=== PATIENT | female | born 1970 | race Caucasian/White ===

== ENCOUNTER → 2018-01-23 16:49 | Outpatient (CLI) | payer MEDICAID, SELFPAY ==
--- NOTE | 2018-01-23 16:54 | MM_ITS ---
MM Dig screening mamm BI w/CAD ORDERING PHYSICIAN : Eros Meade MD PATIENT AGE: 47 years GENDER: Female COMPARISON: Baseline mammogram. No previous INDICATION: ITS.REASON: ROUTINE SCREENING TECHNIQUE: Standard CC and MLO images were obtained. R2 CAD reviewed. FINDINGS: No dominant mass nor suspicious calcifications minimal residual fibroglandular elements with lower density breast moderate fatty replacement.Bilateral follow-up in one year the adequate RIGHT BREAST:No significant appearing findings. One year recommended. LEFT BREAST:. No significant appearing findings. Minimal Fibroglandular density superior left breast appears satisfactory. IMPRESSION: ... . Baseline mammogram with no areas of significant concern. Routine annual follow-up suggested. BI-RADS Category: 1 Negative RECOMMENDED FOLLOW-UP: 1YR 1 YEAR FOLLOW-UP (A letter has been sent to the patient regarding results of the study.)
== END ==
PROVIDERS: PCP Family Medicine; Visit Provider Family Medicine
DX: Z12.31 Encounter for screening mammogram for malignant neoplasm of breast (principal)
CPT/HCPCS: 77067

== ENCOUNTER → 2020-04-28 13:52 | Outpatient (CLI) | payer OTHER, SELFPAY ==
--- NOTE | 2020-04-28 13:56 | US_ITS ---
PROCEDURE: US KIDNEY CLINICAL INDICATION: RENAL INSUFFICIENCY COMPARISON: No exams were available for comparison FINDINGS: The right kidney is [id number]. No hydronephrosis, cortical thinning, or renal mass or perinephric fluid collection is evident. The left kidney is [id number]. No hydronephrosis, cortical thinning, or renal mass or perinephric fluid collection is evident. IMPRESSION: Unremarkable bilateral renal ultrasound Dictated by: William Call MD 04/28/2020 16:32 William Call MD in [place] 04/28/2020 16:32
== END ==
PROVIDERS: PCP Family Medicine; Visit Provider Family Medicine
DX: N28.9 Disorder of kidney and ureter, unspecified (principal)
CPT/HCPCS: 76770

== ENCOUNTER → 2020-06-03 12:51 | Outpatient (CLI) | payer OTHER, SELFPAY ==
--- NOTE | 2020-06-03 12:59 | XR_ITS ---
PROCEDURE: XR MULTIPLE SPINE 6+V CLINICAL INDICATION: CERVICAL AND THORACIC PAIN COMPARISON: No exams were available for comparison FINDINGS: Cervical spine: Five views. Normal alignment. No acute fracture or dislocation. No significant degenerative change. No lytic or blastic change. No foraminal narrowing Thoracic spine: Three views. Normal alignment. No acute fracture or dislocation. Mild kyphosis midthoracic spine with minimal wedge contour of T7, T8, and T9 which may be chronic. No lytic or blastic change. IMPRESSION: As above, minimal degenerative changes midthoracic spine otherwise negative Dictated by: William Call MD 06/03/2020 15:40 William Call MD in [place] 06/03/2020 15:40
== END ==
PROVIDERS: PCP Family Medicine; Visit Provider Family Medicine
DX: M54.2 Cervicalgia (principal); M54.6 Pain in thoracic spine
CPT/HCPCS: 72084

== ENCOUNTER → 2020-06-17 09:56 | Outpatient (CLI) | payer OTHER, SELFPAY ==
--- NOTE | 2020-06-17 10:01 | XR_ITS ---
PROCEDURE: XR DEXA AXIAL SKELETON CLINICAL HISTORY: OSTEOPENIA The patient currently is on vitamin-D. There has been fracture as an adult COMPARISON: No exams were available for comparison FINDINGS: The right hip BMD is 0.889 g per sq cm with a T-score of -0.4. The T-score right femoral neck is -1.4 The left hip BMD is 0.839 g per sq cm with a T-score of -0.8. The T-score left femoral neck is -1.4 The lumbar spine BMD is 0.993 g per sq cm with a T-score of -0.5. IMPRESSION: Normal values for the lumbar spine, mild osteopenia for both hips. The 10 year fracture risk major osteoporotic fracture is 8.6 percent and 1.2 percent for hip fracture Based on these results a follow-up exam is recommended in 2 year. Dictated by: Dr. Rio Romano MD 06/17/2020 11:21 Dr. Rio Romano MD in [place] 06/17/2020 11:21
== END ==
PROVIDERS: PCP Family Medicine; Visit Provider Family Medicine
DX: M85.859 Other specified disorders of bone density and structure, unspecified thigh (principal)
CPT/HCPCS: 77080

== ENCOUNTER → 2020-11-18 16:29 | Outpatient (CLI) | payer OTHER, SELFPAY ==
--- NOTE | 2020-11-18 16:39 | XR_ITS ---
PROCEDURE: XR CHEST 2V CLINICAL HISTORY: BILATERAL LOWER EXTREMITY EDEMA COMPARISON: CR XR MULTIPLE SPINE 6+V from 06/03/2020 FINDINGS: There is mild cardiomegaly without failure. The lungs are clear without infiltrates, suspicious nodules, or pleural effusions. New mild wedge compression changes of T7. Is difficult to determine if this has progressed. Repeat T-spine films may confirm. IMPRESSION: No acute findings. Questionable slight increased compression changes of T7 Dictated by: William Call MD 11/18/2020 17:14 William Call MD in [place] 11/18/2020 17:14
[2020-11-18 17:37] LABS: Hemoglobin A1C 5.4 % (4.0-6.0)
[2020-11-18 18:00] LABS: Chloride 102 mmol/L (98-107)
[2020-11-18 18:01] LABS: Potassium 4.2 mmoL/L (3.5-5.1); Sodium 137 mmol/L (136-145)
[2020-11-18 18:03] LABS: Alanine Aminotransferase 18 U/L (12-78); Aspartate Amino Transferase 26 U/L (14-36); Blood Urea Nitrogen 17 mg/dl (7-17); Estimated Glomerular Filt Rate 47 ml/min (>60); GFR (African American) 57 ML/MIN (>60)
[2020-11-18 18:04] LABS: Albumin/Globulin Ratio 1.6 (1.1-1.8); Alkaline Phosphatase 68 U/L (38-126); Anion Gap 12.2 mEq/L (5-15); Calcium 9.1 mg/dl (8.4-10.2); Carbon Dioxide 27 mmol/L (22.0-30.0); Globulin 2.5 g/dL (1.3-3.2); Glucose 125 mg/dl (74-100); Total Protein,Serum 6.5 g/dl (6.3-8.2)
[2020-11-18 18:06] LABS: Bilirubin,Total < 0.1 mg/dl (0.2-1.3)
[2020-11-19 12:37] LABS: NT Pro Brain Natriuretic Pep. 756 pg/mL (0-125)
== END ==
PROVIDERS: Visit Provider Nurse Practitioner
DX: R60.0 Localized edema (principal); Z79.899 Other long term (current) drug therapy
CPT/HCPCS: 36415; 71046; 80053; 83036; 83880; 84443

== ENCOUNTER → 2020-11-21 14:22 | Outpatient (CLI) | payer OTHER, SELFPAY ==
--- NOTE | 2020-11-21 | CA_ITS ---
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 [employer] Compliance: Beatriz Batista CRT Ht: 5 ft 0 in Wt: 194lbs BSA: 1.84 BP: 110/80 mmHg Indications: EDEMA, SOB, SMOKER 2D Dimensions LVOT 1.87 cm (M/F) 1.5-2.5 LA Volume 47.60 mL LA Volume Index 25.90 mL/m2 (M/F) 16-34 M-Mode Dimensions RVDd 3.21 cm (0.9-2.6) LA Diam 4.04 cm (1.9-4.0) LVDd 5.00 cm (3.5-5.7) Ao Diam 3.18 cm (2.0-3.7) LVDs 3.64 cm (3.5-5.7) IVSd 0.78 cm (0.6-1.1) PWd 1.21 cm (0.6-1.1) EF (Teich) 52.70% FS 27.20% EDV (Teich) 118.20 mL TAPSE 2.68 (<1.7) ESV (Teich) 55.90 mL LV Diastology E Decel Time 180.00 (160-240 msec) E/A Ratio 1.29 MED E' 7.50 (< 7 cm/sec) MED A' 5.40 cm/s E'/MED E' Ratio 12.41 (>14) LAT E' 10.60 (<10 cm/sec) LAT A' 8.00 cm/s E/LAT E' Ratio 8.78 (>14) Aortic Valve AO Peak GR. 6.40 mmHg Mitral Valve MV A Velocity 72.00 (40-130 cm/s) E/A Ratio 1.29 MV Decel. Time 180.00 (160-240 ms) Pulmonary Valve PV Peak Velocity 104.00 (50-150 cm/s) Tricuspid Valve TR P. Velocity 259.00 cm/s RAP Estimate 10.00 mmHg RVSP 36.80 mmHg Left Ventricle Left atrium is mildly enlarged, left ventricle is normal size, mild concentric left ventricular hypertrophy, visually estimated ejection fraction 55% with no regional wall motion abnormality, diastolic parameters are inconclusive. Right Ventricle Right atrium and right ventricle mildly enlarged with normal contractility. Aortic Valve Aortic valve is minimally thickened and fibrosed, there is no aortic stenosis or aortic insufficiency. Mitral Valve Mitral valve is grossly normal, there is mild mitral regurgitation. Tricuspid Valve Tricuspid valve grossly normal, there is mild tricuspid regurgitation, tricuspid regurgitation jet velocity is inadequate for calculation of the right ventricular systolic pressure. Pulmonic Valve Pulmonic valve is poorly visualized. Great Vessels Aortic root is normal size. Inferior vena cava is poorly visualized. Pericardium No significant pericardial effusion noted. Conclusion 1. Mild biatrial enlargement, normal left ventricular size, mild concentric left ventricular hypertrophy, visually estimated ejection fraction 55% with no regional wall motion abnormality, diastolic parameters are inconclusive. 2. Mildly enlarged right ventricle with normal contractility. 3. Mild mitral and tricuspid regurgitation. 4. No significant pericardial effusion noted. Electronically signed by : Edward Queen MD 11/24/2020 21:36:09
--- NOTE | 2020-11-21 15:14 | US_ITS ---
PROCEDURE: US THYROID CLINICAL INDICATION: ENLARGED THYROID COMPARISON: No exams were available for comparison FINDINGS: Right lobe: 3.9 x 1.9 x 2.1 cm. There is heterogeneous echogenicity of the right lobe. 1.3 by 1.2 cm slightly hyperechoic nodule anteriorly well-circumscribed without calcifications. TR level 2. Mixed 4 mm nodule in the mid aspect of the right lobe adjacent to the isthmus. There is decreased echogenicity along the posterior aspect of the thyroid gland possibly due to a parathyroid gland loss of echogenicity due to the location of the area. Left lobe: 3.6 x 1.2 x 1.7 cm. Mixed 5 mm nodule in the upper pole benign-appearing Isthmus: Unremarkable Additional findings: IMPRESSION: No suspicious nodules apparent. Low level decreased echogenicity in the posterior aspect of the right lobe probably related to the scanning technique. Recommend six-month follow-up to confirm stability. Bilateral benign-appearing nodules Dictated by: William Call MD 11/21/2020 15:39 William Call MD in [place] 11/21/2020 15:39
== END ==
PROVIDERS: PCP Family Medicine; Visit Provider Nurse Practitioner
DX: E04.9 Nontoxic goiter, unspecified (principal)
CPT/HCPCS: 76536; 93306

== ENCOUNTER → 2021-01-13 12:03 | Outpatient (CLI) | payer OTHER, SELFPAY ==
--- NOTE | 2021-01-13 | CA_ITS ---
APPROVED REPORT Exam: Exercise Treadmill Technologist: Gina Pulido, Ht: 5 ft 0 in Wt: 186 lbs BSA: 1.81 m2 HR: 58 bpm BP: 155/79 mmHg Medical History Medications: Amlodipine,,,,, Metoprolol,,,,, HCTZ,,,,, BuPROPION,,,,, Fluoxetine,,,,, Stress Test Details Test: Manual Treadmill HR Resting HR: 64 bpm Max Heart Rate (APMHR): 169.579790 bpm Max HR Achieved: 130 bpm Target HR (85% APMHR): 143.765650 bpm % of APMHR: 76.92 Recovery HR: 71 bpm BP Resting BP: 148/89 mmHg Max BP: 206/90 mmHg Recovery BP: 141.0/69.0 mmHg ECG Resting ECG: Sinus robin, cannot R/O old inferior SD Clinical Exercise duration: 05:30 min Highest Stage Achieved: Exercise capacity: 5.3 METs Stress ECG Conclusion Exercised 5:30 total, 4 minutes in stage 1 Juan with speed increased to 2mph over last 1:30. Max HR: 130 % of PM: 77% Max BP: 206/90 METs: 5.3 Test stopped due to: SOA, Fatigue. Symptoms: Dyspnea, No Cp. Arrhythmias/Ectopy: None. ST-T Changes: -1mm of horizontal and downsloping ST depression inferiorly. -1-1.5mm horizontal ST depression laterally. Conclusion: Equivocal EKG changes -Blunted HR response on beta-miranda. Myoview images reported separately. Test Summary Stage 1 05:00 10.0 2.0 128 . 206/ 90 . . REST . . . . . . . Standing REST 04:37 0.0 0.0 64 . 148/ 89 . . Stage 1 01:00 10.0 1.7 96 . . . . Stage 1 02:00 10.0 1.7 116 . . . . Stage 1 . . . . . . . Stage held Stage 1 03:00 10.0 1.7 122 . 206/ 90 . . Stage 1 . . . . . . . Protocol changed to Manual Treadmill Stage 1 04:00 10.0 2.0 124 . 206/ 90 . . Stage 1 05:00 10.0 2.0 128 . 206/ 90 . . Stage 1 . . . . . . . Stage resumed Stage 1 05:30 10.0 2.0 130 . 206/ 90 . Stop exercise at 05:30 RECOVERY 01:00 0.0 0.0 106 . . . . RECOVERY 02:00 0.0 0.0 93 . 165/ 76 . . RECOVERY 03:00 0.0 0.0 81 . 165/ 70 . . RECOVERY 04:00 0.0 0.0 77 . 165/ 70 . . RECOVERY 05:00 0.0 0.0 74 . 155/ 68 . . RECOVERY 06:00 0.0 0.0 74 . 141/ 69 . . RECOVERY 07:00 0.0 0.0 71 . 141/ 69 . . RECOVERY 07:18 0.0 0.0 72 . 141/ 69 . . Electronically signed by : Edward Queen MD 01/13/2021 18:29:31
--- NOTE | 2021-01-13 12:07 | NM_ITS ---
APPROVED REPORT Exam: Nuclear Stress Test Indication: HTN, Tobacco use, Family history Patient Location: Outpatient Stress Tech: Gina Pulido PR Tech:Lianna Leonard, ARRT, RT (R)(N) Ht: 5 ft 0 in Wt: 186 lbs Bra Size: 38D HR: 64 bpm BP: 148/89 mmHg BSA: 1.81 m2 History: HTN, Tobacco use, Family history Procedure: Patient exercised on Juan protocol 5:30 minutes and sec, resting heart rate 64 bpm, resting blood pressure 148/89 mmHg, with exercise maximum heart rate achived was 130 bpm which is 77 % of the maximum predicted heart rate and blood pressure was 206/90 mmHg. Test was stopped due to SOA. Patient denied any complaint of chest pain. Patient has poor exercise capacity, achieved 5.3 METs of workload on treadmill, the blood pressure response to exercise was Hypertensive. Electrocardiogram Resting electrocardiogram showed sinus rhythm, with exercise there is less than 1.[address] segment depression noted from the baseline EKG. The EKG portion of the exercise Myoview is nondiagnostic as patient did not achieve the target heart rate. Cardiac Stress and Resting SPECT Images: Cardiac Stress and Resting SPECT images were obtained using technetium 99m Myoview 32.0 mCi stress and 10.50 mCi at rest. Gated SPECT for analysis of segmental wall motion and calculation of the ejection fraction also done. Prone images were also obtained. Cardiac stress and resting SPECT images show uniform myocardial activity without segmental perfusion abnormality, computer derived ejection fraction is over 65% with no regional wall motion abnormality, right ventricle is normal size and contractility. Conclusion: 1. The EKG portion of the exercise Myoview is nondiagnostic as patient did not achieve the target heart rate, patient has poor exercise capacity 5.3 METs of workload on treadmill, the blood pressure response to exercise was hypertensive, there was no exercise-induced chest discomfort. 2. No scintigraphic evidence of reversible ischemia seen at this level of exercise, computer derived ejection fraction is over 65% with no regional wall motion abnormality, right ventricle is normal size and contractility. Electronically signed by : Edward Queen MD 01/13/2021 19:03:34
--- NOTE | 2021-01-13 14:14 | HMH.ITSHM ---
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 []METOPROLOL HCTZ FLUOXETINE AMLODIPINE LOSARTAN OMEPRAZOLE LEVOTHYROXINE FUROSEMIDE RALOXIFENE BUPROPION GABAPENTIN
== END ==
PROVIDERS: PCP Family Medicine; Visit Provider Family Medicine
DX: I10 Essential (primary) hypertension (principal); F17.200 Nicotine dependence, unspecified, uncomplicated; Z82.49 Family history of ischemic heart disease and other diseases of the circulatory system
CPT/HCPCS: 78452; 93017; A9502

== ENCOUNTER → 2021-08-11 15:23 | Outpatient (CLI) | payer OTHER, SELFPAY ==
[2021-08-11 17:07] LABS: Anion Gap 13.5 mEq/L (5-15); Blood Urea Nitrogen 9 mg/dl (7-17); Calcium 9.5 mg/dl (8.4-10.2); Carbon Dioxide 21 mmol/L (22.0-30.0); Chloride 105 mmol/L (98-107); Estimated Glomerular Filt Rate 58 ml/min (>60); GFR (African American) 70 ML/MIN (>60); Glucose 118 mg/dl (74-100); Potassium 4.5 mmoL/L (3.5-5.1); Sodium 135 mmol/L (136-145)
[2021-08-11 17:14] LABS: NT Pro Brain Natriuretic Pep. 516 pg/mL (0-125)
== END ==
PROVIDERS: PCP Family Medicine; Visit Provider Internal Medicine Cardiovascular Disease
DX: R00.1 Bradycardia, unspecified (principal); R60.9 Edema, unspecified
CPT/HCPCS: 36415; 80048; 83880

== ENCOUNTER → 2021-08-20 15:06 | Outpatient (CLI) | payer OTHER, SELFPAY ==
--- NOTE | 2021-08-20 15:06 | US_ITS ---
FINAL REPORT CLINICAL HISTORY: claudication, current smoker, bilateral rest pain. FINDINGS: BILATERAL ANKLE BRACHIAL INDICES HISTORY: Claudication. Pressure indices are as follows are: RIGHT LOWER EXTREMITY Ankle brachial pressure index: 1.01 Toe brachial pressure index: 0.81 COMMENTS: Normal LEFT LOWER EXTREMITY Ankle brachial pressure index: 0.93 Toe brachial pressure index: 0.68 COMMENTS: Borderline IMPRESSION: No evidence of significant obstructive peripheral vascular disease of the lower extremities. Reviewed, Interpreted and Dictated by Chong Morales III, MD Transcribed by Stephani Estrada Authenticated and [facility]
--- NOTE | 2021-09-02 11:16 | PC.NURSE ---
[id number] [facility] [id number] 07/30/21 - 09/27/21
== END ==
PROVIDERS: PCP Family Medicine; Visit Provider Nurse Practitioner
DX: R60.9 Edema, unspecified; R00.1 Bradycardia, unspecified; F17.200 Nicotine dependence, unspecified, uncomplicated; I70.213 Atherosclerosis of native arteries of extremities with intermittent claudication, bilateral legs; G47.33 Obstructive sleep apnea (adult) (pediatric)
CPT/HCPCS: 93923; 95806

== ENCOUNTER → 2021-09-08 14:19 | Outpatient (CLI) | payer OTHER, SELFPAY ==
[2021-09-08 19:14] LABS: Chloride 104 mmol/L (98-107); Potassium 4.3 mmoL/L (3.5-5.1); Sodium 134 mmol/L (136-145)
[2021-09-08 19:17] LABS: Anion Gap 8.3 mEq/L (5-15); Blood Urea Nitrogen 15 mg/dl (7-17); Calcium 9.2 mg/dl (8.4-10.2); Carbon Dioxide 26 mmol/L (22.0-30.0); Estimated Glomerular Filt Rate 58 ml/min (>60); GFR (African American) 70 ML/MIN (>60); Glucose 93 mg/dl (74-100)
== END ==
PROVIDERS: PCP Family Medicine; Visit Provider Family Medicine
DX: I10 Essential (primary) hypertension (principal)
CPT/HCPCS: 80048

== ENCOUNTER → 2022-04-22 11:00 | Outpatient (CLI) | payer OTHER, SELFPAY | PROVIDERS: PCP Nurse Practitioner; Visit Provider Nurse Practitioner | DX: J02.9 Acute pharyngitis, unspecified (principal) ==

== ENCOUNTER → 2022-05-04 23:36 | Outpatient (CLI) | payer OTHER, SELFPAY ==
[2022-05-04 19:20] LABS: Basophils # 0.2 K/mm3 (0-0.2); Basophils % 1.4 % (0.1-2.0); Eosinophils # 0.1 K/mm3 (0.0-0.4); Eosinophils % 1.2 % (0.1-12.0); Hematocrit 39.9 % (37.0-47.0); Lymphocytes # 3.6 K/mm3 (0.7-4.5); Lymphocytes % 33.1 % (10-50); Mean Corpuscular HGB Conc 32.6 g/dL (31.8-35.4); Mean Corpuscular Hemoglobin 34.2 pg (27.0-31.2); Monocytes # 0.5 K/mm3 (0.1-1.0); Monocytes % 4.4 % (1.7-9.3); Neutrophils # 6.6 K/mm3 (1.8-7.8); Neutrophils % 59.9 % (37.0-80.0); Platelet Count 317 K/mm3 (142-424); Red Cell Distribution Width 12.9 % (11.5-17.5)
[2022-05-04 19:34] LABS: Alanine Aminotransferase 19 U/L (12-78); Albumin/Globulin Ratio 1.5 (1.1-1.8); Alkaline Phosphatase 67 U/L (38-126); Anion Gap 8.7 mEq/L (5-15); Aspartate Amino Transferase 24 U/L (14-36); Bilirubin,Total 0.4 mg/dl (0.2-1.3); Blood Urea Nitrogen 18 mg/dl (7-17); Calcium 8.9 mg/dl (8.4-10.2); Carbon Dioxide 27 mmol/L (22.0-30.0); Chloride 103 mmol/L (98-107); Estimated Glomerular Filt Rate 47 ml/min (>60); GFR (African American) 57 ML/MIN (>60); Globulin 2.6 g/dL (1.3-3.2); Glucose 83 mg/dl (74-100); Potassium 4.7 mmoL/L (3.5-5.1); Sodium 134 mmol/L (136-145); Total Protein,Serum 6.6 g/dl (6.3-8.2)
[2022-05-04 20:00] LABS: Thyroid Stimulating Hormone 2.06 uIU/mL (0.465-4.68)
[2022-05-04 20:19] LABS: Vitamin B12 985 pg/mL (239-931)
== END ==
PROVIDERS: PCP Family Medicine; Visit Provider Family Medicine
DX: I10 Essential (primary) hypertension (principal); E53.8 Deficiency of other specified B group vitamins; M54.9 Dorsalgia, unspecified; E03.9 Hypothyroidism, unspecified
CPT/HCPCS: 80053; 82607; 84443; 85025

== ENCOUNTER → 2022-05-20 09:17 | Outpatient (CLI) | payer OTHER, SELFPAY ==
--- NOTE | 2022-05-20 09:18 | XR_ITS ---
FINAL REPORT TECHNIQUE: Bone densitometry calculations of the lumbar spine and hips were obtained. CLINICAL HISTORY: post menopausal COMPARISON: 06/17/2020 FINDINGS: DEXA BONE DENSITY AXIAL SKELETON Using L1-4, the bone mineral density of the spine is 0.996 g/cm2, corresponding to T-score of -0.5. Previously measured 0.993 g/cm2, corresponding to T-score of -0.5. Using the left hip, the bone mineral density of the femoral neck is 0.683 g/cm2, corresponding to a T-score of -1.5. Previously measured 0.694 g/cm2, corresponding to T-score of -1.4. Using the right hip, the bone mineral density of the femoral neck is 0.667 g/cm2, corresponding to a T-score of -1.6. Previously measured 0.697 g/cm2, corresponding to T-score of -1.4. NOTE: T-score: Standard deviation compared with peak bone mass of young adult mean. *Following the recommendations of the International Society of Bone densitometry, classification of hip BMD is based on the lower of two T-scores; total hip or femoral neck. IMPRESSION: Normal bone mineral density of the lumbar spine. Diminished bone mineral density of the hips consistent with osteopenia. FRAX 10 year fracture risk is 1.6% for a hip fracture and 10% for a major osteoporotic fracture based on right hip. Reviewed, Interpreted and Dictated by Suman Vance MD Transcribed by Shae Torres Authenticated and [facility]
--- NOTE | 2022-05-20 09:18 | MM_ITS ---
PROCEDURE INFORMATION: Exam: Bilateral Diagnostic Breast Tomosynthesis Exam date and time: 05/20/2022 9:41 AM Age: 52 years old Clinical indication: Fibrocystic breast, PT has no new problems or palpable nodules TECHNIQUE: Imaging protocol: Bilateral Diagnostic tomosynthesis and 2D mammography including computer-aided detection (CAD) when performed. Unilateral or bilateral exam. COMPARISON: [facility] MM Dig screening mamm BI w/CAD 01/23/2018 5:03 PM FINDINGS: MAMMOGRAPHY: The breast tissue is almost entirely fatty. There is no stellate mass, architectural distortion or suspicious microcalcifications in either breast to suggest malignancy. No skin thickening or axillary adenopathy. IMPRESSION: No mammographic evidence of malignancy. Annual bilateral mammographic screening is recommended unless otherwise clinically indicated. ASSESSMENT: BI-RADS Category 1: Negative
--- NOTE | 2022-05-20 09:18 | CT_ITS ---
FINAL REPORT TECHNIQUE: Axial images through the thoracic spine were performed. Sagittal reconstruction images were performed. This study was performed with techniques to keep radiation doses as low as reasonably achievable, (ALARA). Individualized dose reduction techniques using automated exposure control or adjustment of mA and/or kV according to the patient's size were employed. CLINICAL HISTORY: Back Pain FINDINGS: The thoracic vertebra are of normal height. There is mild anterior and osteophyte formation in the mid and lower thoracic spine. The facets are properly aligned. There is no significant disc bulge or protrusion. There is a density calcified left hilar lymph node. There is a 4 mm nodule in the periphery of the right middle lobe. The lungs are otherwise clear. IMPRESSION: Mild changes of degenerative disc disease. Right middle lobe nodule. As per Fleischner is criteria, follow-up CT in 12 months can be considered if patient is high risk. Reviewed, Interpreted and Dictated by Suman Vance MD Transcribed by Radha Bautista Authenticated and [facility]
== END ==
PROVIDERS: PCP Family Medicine; Visit Provider Family Medicine
DX: N60.19 Diffuse cystic mastopathy of unspecified breast (principal); M54.6 Pain in thoracic spine; M85.89 Other specified disorders of bone density and structure, multiple sites
CPT/HCPCS: 72128; 77062; 77066; 77080; G0279

== ENCOUNTER → 2022-10-01 09:25 | Outpatient (CLI) | payer OTHER, SELFPAY ==
--- NOTE | 2022-10-01 09:25 | MR_ITS ---
FINAL REPORT CLINICAL HISTORY: meniscal injury left knee pain x 3 week pain around patella FINDINGS: Multiplanar MR imaging of the right knee was performed without contrast. The medial meniscus is intact. There is a tear of the body of the lateral meniscus. The lateral parameniscal cyst is seen measuring 13 mm. The anterior and posterior cruciate ligaments are intact. The medial collateral ligament and lateral ligamentous complex are intact. The patellar and quadriceps tendons are intact. There is no evidence of fracture. No focal abnormality is identified of the articular cartilage. Small joint effusion is seen. The musculature is intact. No soft tissue mass or cyst is identified. IMPRESSION: Lateral meniscal tear. Reviewed, Interpreted and Dictated by Chong Morales III, MD Transcribed by Radha Bautista Authenticated and [facility]
== END ==
PROVIDERS: PCP Family Medicine; Visit Provider Family Medicine
DX: M25.562 Pain in left knee (principal)
CPT/HCPCS: 73721

== ENCOUNTER 2023-03-08 12:19 | Outpatient (CLI) | payer OTHER, SELFPAY ==
--- NOTE | 2023-03-08 12:25 | XR_ITS ---
FINAL REPORT CLINICAL HISTORY: left knee pain COMPARISON: None FINDINGS: Three views of the left knee reveal no evidence of fracture or dislocation. The bony alignment is normal. Mild degenerative changes noted. There is no evidence of joint effusion. No localized soft tissue abnormality is seen. IMPRESSION: No acute abnormality identified. Reviewed, Interpreted and Dictated by Chong Morales III, MD Transcribed by Mary Beth Briseno Authenticated and [facility]
== END 2023-03-08 23:59 ==
LOC: RAD 12:20
PROVIDERS: PCP Psychiatry & Neurology Sleep Medicine; Visit Provider Orthopaedic Surgery
DX: M25.562 Pain in left knee (principal)
CPT/HCPCS: 73562

== ENCOUNTER 2023-04-13 21:18 | Outpatient (CLI) | payer OTHER, SELFPAY ==
[2023-04-13 19:24] LABS: Basophils % 0.4 % (0.1-2.0); Eosinophils # 0.1 K/mm3 (0.0-0.4); Eosinophils % 1.8 % (0.1-12.0); Hematocrit 39.2 % (37.0-47.0); Lymphocytes # 2.7 K/mm3 (0.7-4.5); Lymphocytes % 38.2 % (10-50); Mean Corpuscular HGB Conc 33.1 g/dL (31.8-35.4); Mean Corpuscular Hemoglobin 35.1 pg (27.0-31.2); Mean Platelet Volume 11.1 fl (7.4-10.4); Monocytes # 0.4 K/mm3 (0.1-1.0); Monocytes % 5.2 % (1.7-9.3); Neutrophils # 3.9 K/mm3 (1.8-7.8); Neutrophils % 54.4 % (37.0-80.0); Platelet Count 241 K/mm3 (142-424); Red Cell Distribution Width 12.9 % (11.5-17.5); White Blood Count 7.2 K/mm3 (4.8-10.8)
[2023-04-13 19:32] LABS: Alanine Aminotransferase 23 U/L (12-78); Albumin/Globulin Ratio 1.5 (1.1-1.8); Alkaline Phosphatase 77 U/L (38-126); Anion Gap 9.3 mEq/L (5-15); Aspartate Amino Transferase 29 U/L (14-36); Bilirubin,Total 0.5 mg/dl (0.2-1.3); Blood Urea Nitrogen 16 mg/dl (7-17); Carbon Dioxide 25 mmol/L (22.0-30.0); Chloride 107 mmol/L (98-107); Chol/HDL Ratio 4.1 (1-3.5); Cholesterol 207 mg/dl (140-200); Estimated Glomerular Filt Rate 58 ml/min (>60); GFR (African American) 70 ML/MIN (>60); Globulin 2.6 g/dL (1.3-3.2); Glucose 92 mg/dl (74-100); HDL Cholesterol 50 mg/dl (40-60); Potassium 4.3 mmoL/L (3.5-5.1); Sodium 137 mmol/L (136-145); Total Protein,Serum 6.6 g/dl (6.3-8.2); Triglycerides 87 mg/dl (30-150); VLDL Cholesterol 17 mg/dL (0-40)
[2023-04-13 19:43] LABS: Direct LDL Cholesterol 123.01 mg/dL (100-129)
[2023-04-13 19:52] LABS: Free T4 (Free Thyroxine) 1.31 ng/dl (0.78-2.19)
[2023-04-13 19:53] LABS: 25-OH Vitamin D, Total 98.8 ng/mL (30-100)
[2023-04-13 19:57] LABS: Hemoglobin A1C 5.2 % (4.0-6.0)
[2023-04-13 20:03] LABS: Thyroid Stimulating Hormone 1.79 uIU/mL (0.465-4.68)
[2023-04-13 20:32] LABS: Vitamin B12 > 1000 pg/mL (239-931)
[2023-04-13 20:59] LABS: Creatinine,Urine Random 53 mg/dL (Not Estab.); Microalbumin < 6.000 mg/L (0-16.7)
== END 2023-04-13 23:59 ==
LOC: LAB.DROPOF 21:19
PROVIDERS: PCP Nurse Practitioner; Visit Provider Nurse Practitioner
DX: E03.8 Other specified hypothyroidism (principal); E53.8 Deficiency of other specified B group vitamins; I10 Essential (primary) hypertension; G47.33 Obstructive sleep apnea (adult) (pediatric); Z79.899 Other long term (current) drug therapy
CPT/HCPCS: 80053; 80061; 82043; 82306; 82570; 82607; 83036; 84439; 84443; 85025

== ENCOUNTER 2023-06-17 14:28 | Outpatient (CLI) | payer OTHER, SELFPAY ==
--- NOTE | 2023-06-17 14:28 | CT_ITS ---
FINAL REPORT TECHNIQUE: Axial CT images of the chest were obtained without contrast. Low-dose protocol was utilized. This study was performed with techniques to keep radiation doses as low as reasonably achievable (ALARA). Individualized dose reduction techniques using automated exposure control or adjustment of mA and/or kV according to the patient's size were employed. CLINICAL HISTORY: lung cancer screening smokes 1 pk per day x 35 yrs COMPARISON: None FINDINGS: CT CHEST WITHOUT, LOW DOSE SCREENING CT Di Vol: 2.9 mGy DLP: 110.46 mGy*cm There is no axillary, mediastinal, or hilar adenopathy. The heart size is normal. There is no pleural or pericardial effusion. The lung windows show a 4 mm noncalcified nodule in the periphery of the right middle lobe best seen on image 49 of series 4. Limited images of the upper abdomen demonstrate no acute findings. IMPRESSION: LR Category 2: 12 month follow-up low-dose chest CT is recommended. Reviewed, Interpreted and Dictated by Suman Vance MD Transcribed by Stephani Estrada Authenticated and [facility]
--- NOTE | 2023-06-17 14:28 | MM_ITS ---
PROCEDURE INFORMATION: Exam: MG Bilateral Screening 3D Mammography Exam date and time: 06/17/2023 2:25 PM Age: 53 years old Clinical indication: Screening examination TECHNIQUE: Imaging protocol: Bilateral Screening tomosynthesis and 2D mammography including computer-aided detection (CAD) when performed. COMPARISON: 1. MG MM DIG MAMM BI DX W/CAD 05/20/2022 9:41 AM 2. MG [facility] MM Dig screening mamm BI w/CAD 01/23/2018 5:03 PM FINDINGS: MAMMOGRAPHY: Breast composition: The breasts are almost entirely fatty. Mass: None. Architectural distortion: None. Calcifications: No suspicious calcifications. Asymmetric density: None. Skin thickening: None. Axillary adenopathy: None. IMPRESSION: No mammographic evidence of malignancy. Annual screening is recommended unless otherwise clinically indicated. ASSESSMENT: BI-RADS Category 1: Negative
== END 2023-06-17 23:59 | disposition home or self-care (01) ==
LOC: RAD 14:28
PROVIDERS: PCP Nurse Practitioner; Visit Provider Nurse Practitioner
DX: Z12.31 Encounter for screening mammogram for malignant neoplasm of breast (principal); N60.11 Diffuse cystic mastopathy of right breast; N60.12 Diffuse cystic mastopathy of left breast; F17.210 Nicotine dependence, cigarettes, uncomplicated
CPT/HCPCS: 71271; 77063; 77067

== ENCOUNTER 2023-09-20 11:43 | Outpatient (CLI) | payer OTHER, SELFPAY ==
[2023-09-20 18:40] LABS: Alanine Aminotransferase 25 U/L (12-78); Albumin Level 3.7 g/dl (3.5-5.0); Albumin/Globulin Ratio 1.6 (1.1-1.8); Alkaline Phosphatase 56 U/L (38-126); Anion Gap 8.4 mEq/L (5-15); Aspartate Amino Transferase 35 U/L (14-36); Bilirubin,Total 0.4 mg/dl (0.2-1.3); Blood Urea Nitrogen 15 mg/dl (7-17); Calcium 9.3 mg/dl (8.4-10.2); Carbon Dioxide 27 mmol/L (22.0-30.0); Chloride 102 mmol/L (98-107); Estimated Glomerular Filt Rate 58 ml/min (>60); GFR (African American) 70 ML/MIN (>60); Globulin 2.3 g/dL (1.3-3.2); Glucose 64 mg/dl (74-100); Potassium 4.4 mmoL/L (3.5-5.1); Sodium 133 mmol/L (136-145)
[2023-09-20 19:12] LABS: Thyroid Stimulating Hormone 3.56 uIU/mL (0.465-4.68)
== END 2023-09-20 23:59 | disposition home or self-care (01) ==
LOC: LAB.DROPOF 09-21 11:44
PROVIDERS: PCP Family Medicine; Visit Provider Family Medicine
DX: I10 Essential (primary) hypertension (principal); E03.9 Hypothyroidism, unspecified; Z72.0 Tobacco use
CPT/HCPCS: 80053; 84443

== ENCOUNTER 2024-01-24 15:22 | Outpatient (CLI) | payer OTHER, SELFPAY ==
[2024-01-24 19:12] LABS: Anion Gap 9.5 mEq/L (5-15); Blood Urea Nitrogen 14 mg/dl (7-17); Calcium 9.4 mg/dl (8.4-10.2); Carbon Dioxide 25 mmol/L (22.0-30.0); Chloride 103 mmol/L (98-107); Estimated Glomerular Filt Rate 58 ml/min (>60); GFR (African American) 70 ML/MIN (>60); Glucose 76 mg/dl (74-100); Potassium 4.5 mmoL/L (3.5-5.1); Sodium 133 mmol/L (136-145)
== END 2024-01-24 23:59 | disposition home or self-care (01) ==
LOC: LAB.DROPOF 01-25 07:48
PROVIDERS: PCP Family Medicine; Visit Provider Family Medicine
DX: I10 Essential (primary) hypertension (principal); Z72.0 Tobacco use
CPT/HCPCS: 80048

== ENCOUNTER 2024-06-26 15:05 | Outpatient (CLI) | payer OTHER, SELFPAY ==
[2024-06-26 19:45] LABS: Alanine Aminotransferase 21 U/L (12-78); Albumin Level 4.2 g/dl (3.5-5.0); Albumin/Globulin Ratio 1.7 (1.1-1.8); Alkaline Phosphatase 58 U/L (38-126); Anion Gap 7.5 mEq/L (5-15); Aspartate Amino Transferase 33 U/L (14-36); Bilirubin,Total 0.5 mg/dl (0.2-1.3); Blood Urea Nitrogen 16 mg/dl (7-17); Calcium 9.4 mg/dl (8.4-10.2); Carbon Dioxide 26 mmol/L (22.0-30.0); Chloride 103 mmol/L (98-107); Estimated Glomerular Filt Rate 47 ml/min (>60); GFR (African American) 56 ML/MIN (>60); Globulin 2.5 g/dL (1.3-3.2); Glucose 81 mg/dl (74-100); Potassium 4.5 mmoL/L (3.5-5.1); Sodium 132 mmol/L (136-145); Total Protein,Serum 6.7 g/dl (6.3-8.2)
[2024-06-26 20:09] LABS: Thyroid Stimulating Hormone 3.24 uIU/mL (0.465-4.68)
== END 2024-06-26 23:59 | disposition home or self-care (01) ==
LOC: LAB.DROPOF 06-28 12:59
PROVIDERS: PCP Family Medicine; Visit Provider Family Medicine
DX: E03.9 Hypothyroidism, unspecified (principal); I10 Essential (primary) hypertension
CPT/HCPCS: 80053; 84443